=== PATIENT | male | born 2000 | race Caucasian/White ===

== ENCOUNTER 2021-12-13 08:30 | Emergency (ER) | payer SELFPAY ==
--- NOTE | 2021-12-13 08:50 | ERPHSYRPT ---
- History of Present Illness Time Seen by Provider: 12/13/21 08:46 Historian: patient Exam Limitations: no limitations Patient Subjective Stated Complaint: PT CO HAVING A ABD HERNIA AND HAS PAIN WITH IT, NO N/V OR FEVER Triage Nursing Assessment: PT ALERT, RESP EASY, SKIN W/D/P. 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 For some time he has noticed the development of what appears to be a bulge in his upper right abdomen near the xiphoid that seems worse when he lifts weights that goes away when he lays down and relaxes. He is concerned this might represent a hernia. He has had no nausea vomiting etc. and its painless unless he is lifting. Timing/Duration: gradual onset Activities at Onset: other (Lifting weights) Quality: throbbing Abdominal Pain Onset Location: epigastric Pain Radiation: no radiation Severity of Pain-Max: moderate Severity of Pain-Current: none Associated Symptoms: denies symptoms Previous symptoms: same symptoms as today Hx Tetanus, Diphtheria Vaccination/Date Given: No Hx Influenza Vaccination/Date Given: No Hx Pneumococcal Vaccination/Date Given: No Immunizations Up to Date: Yes Travel Risk - International Travel Have you traveled outside of the country in past 3 weeks: No - Coronavirus Screening Are you exhibiting any of the following symptoms?: No Close contact with a COVID-19 positive Pt in past 14-21 Days: No - Vaccine Status Have you recieved a Covid-19 vaccination: No - Review of Systems Constitutional: No Fever, No Chills Eyes: No Symptoms Ears, Nose, & Throat: No Symptoms Respiratory: No Cough, No Dyspnea Cardiac: No Chest Pain, No Edema, No Syncope Abdominal/Gastrointestinal: Other (Abdominal pain and swelling to the right of the xiphoid and epigastric area with weight lifting), No Abdominal Pain, No Nausea, No Vomiting, No Diarrhea Genitourinary Symptoms: No Dysuria Musculoskeletal: No Back Pain, No Neck Pain Skin: No Rash Neurological: No Dizziness, No Focal Weakness, No Sensory Changes Psychological: No Symptoms Endocrine: No Symptoms All Other Systems: Reviewed and Negative - Social History Smoking Status: Never smoker Exposure to second hand smoke: No Patient Lives Alone: No - Nursing Vital Signs Nursing Vital Signs: Initial Vital Signs Temperature 98.0 F 12/13/21 08:35 Pulse Rate 104 H 12/13/21 08:35 Respiratory Rate 18 12/13/21 08:35 Blood Pressure 145/89 12/13/21 08:35 O2 Sat by Pulse Oximetry 92 L 12/13/21 08:35 Pain Scale Pain Intensity 5 - Physical Exam General Appearance: no apparent distress, alert Eye Exam: PERRL/EOMI, eyes nml inspection Ears, Nose, Throat Exam: normal ENT inspection, pharynx normal, moist mucous membranes Neck Exam: normal inspection, non-tender, supple, full range of motion Respiratory Exam: normal breath sounds, lungs clear, No respiratory distress Cardiovascular Exam: regular rate/rhythm, normal heart sounds Gastrointestinal/Abdomen Exam: soft, hernia (Obvious hernia to the right xiphoid area easily reducible), No tenderness, No mass Back Exam: normal inspection, normal range of motion, No CVA tenderness, No vertebral tenderness Extremity Exam: normal inspection, normal range of motion, pelvis stable Neurologic Exam: alert, oriented x 3, cooperative, normal mood/affect, nml cerebellar function, sensation nml, No motor deficits Skin Exam: normal color, warm, dry SpO2: 92 - Course Nursing assessment & vital signs reviewed: Yes - Progress Progress Note: 12/13/21 08:49 We discussed the findings with him we encouraged him to back off on the weight lifting and to see a general surgeon he will be provided with contact information. He was offered a CT scan and declined preferring to wait to see the surgeon. - Departure Departure Disposition: Home Clinical Impression: Ventral hernia Condition: Stable Critical Care Time: No Referrals: DOCTOR,NO FAMILY [Primary Care Provider] - Follow up/PCP as directed Instructions: Abdominal Hernia (DC)
[2021-12-13 09:06] VITALS: BP 136/63; PULSE 72; O2SAT 97
== END 2021-12-13 09:15 | disposition home or self-care (01) ==
LOC: ED 08:30
DX: K43.9 Ventral hernia without obstruction or gangrene (principal); Z28.310 Unvaccinated for COVID-19
CPT/HCPCS: 99281